=== PATIENT | male | born 1980 | race Caucasian/White ===

== ENCOUNTER 2020-08-21 09:55 | Outpatient (CLI) | payer OTHER, SELFPAY ==
--- NOTE | ~2020-08-21 | XR_ITS ---
EXAMINATION: UGI AIR CONTRAST W/ ESOPHAGRAM DATE: 10/29/07 09:43:00 INDICATION: Abdominal distention TECHNIQUE: Thin barium contrast with and without gas effervescent crystals were administered orally. Fluoroscopic images of the esophagus, stomach, and proximal duodenum were obtained in various projec tions. The hypopharynx was also imaged. Thereafter, overhead images of the thoracic esophagus and abd omen were performed. Fluoroscopy time 0.9 minutes. DAP is 5.2. 64 images. FINDINGS: No prior studies for comparison. The esophagus is normal in caliber, without mucosal lesions or strictures. There is normal esophagea l peristalsis. There is no hiatal hernia. The hypopharynx is normal. The gastric folds are normal. The proximal duodenum is also normal in appearance. IMPRESSION: 1. Normal esophagram and upper GI study. Reviewed, dictated and finalized at location A. ICE MAKER
== END 2020-08-21 09:56 | disposition home or self-care (01) ==
PROVIDERS: PCP Family Medicine; Visit Provider Internal Medicine
DX: R14.0 Abdominal distension (gaseous) (principal)
CPT/HCPCS: 74240

== ENCOUNTER 2020-08-24 06:54 | Outpatient (NON) | payer OTHER, SELFPAY ==
[2020-08-24 23:29] LABS: SARS-CoV-2 RNA PCR Negative
== END 2020-08-24 06:55 ==
LOC: ANHCOVIDDT 07:10
PROVIDERS: PCP Internal Medicine; Visit Provider Internal Medicine
DX: R05 Cough (principal); Z20.822 Contact with and (suspected) exposure to COVID-19
CPT/HCPCS: C9803; U0003

== ENCOUNTER 2020-09-11 01:32 | Outpatient (CLI) | payer OTHER, SELFPAY ==
[2020-09-11 18:12] LABS: SARS-CoV-2 RNA PCR Negative
== END 2020-09-11 01:33 | disposition home or self-care (01) ==
LOC: ANHCOVIDDT 01:32
PROVIDERS: Family Provider Family Medicine; PCP Internal Medicine; Visit Provider Internal Medicine Gastroenterology
DX: Z01.812 Encounter for preprocedural laboratory examination (principal); Z20.822 Contact with and (suspected) exposure to COVID-19
CPT/HCPCS: C9803; U0003; U0005

== ENCOUNTER 2020-09-14 01:40 | Day surgery (SDC) | payer OTHER, SELFPAY ==
[2020-09-05 14:43] VITALS: BMI 19.9
--- NOTE | 2020-09-12 15:44 | P.PNAN_ITS ---
Anes - Initial Pre Proc Eval Procedure: Operation Date: 09/14/20 12:15 Proposed Procedures p Esophagogastroduodenoscopy - Balta Hadley MD Date/Time: 09/12/20 15:44 Surgeon: Balta Hadley MD Pre Op Diagnosis: Gerd, Abdominal Distention Patient Data Age: 40 Gender: M Height: 1.68 m Weight: 56 kg Allergies Allergy/AdvReac Type Severity Reaction Status Date / Time amoxicillin Allergy Intermediate Hives Verified 09/14/20 11:07 Home Medications Medication Instructions Recorded Confirmed Type famotidine 20 mg tablet 20 mg PO BID 08/14/20 09/14/20 History sucralfate 1 gram tablet 2 g PO BID #120 tablet 08/23/20 09/14/20 Rx cholecalciferol (vitamin D3) 50 mcg PO DAILY 09/05/20 09/14/20 History [Vitamin D3] brvqpvgtywcz-zmm-qhbi-FA-vit K 1 tablet PO DAILY 09/05/20 09/14/20 History [Adults Multivitamin] tadalafil 5 mg PO PRN PRN 09/05/20 09/14/20 History vitamin B complex [B 1 tablet PO DAILY 09/05/20 09/14/20 History Complex-Vitamin B12] Patient hx anesthesia problems: none Family hx anesthesia problems: none PMFSH Past Medical History Medical History (Updated 08/21/20 @ 16:33 by Peri Mallory) Cough Dysplastic nevi cytologic atypia GERD (gastroesophageal reflux disease) Family History Family History Mother Family history of mental disorder Depression Family history of alcoholism Other No family history of cardiovascular disease Social History Social History Smoking status: Former smoker Tobacco type: cigarettes Alcohol intake: current Drinks per week: 6 Alcohol use details: PAST MONTH CUT TO ONLY A FEW DUE TO STOMACH ISSUES Substance use: current Substance use type: marijuana Last use: 08/24/20 Spiritual care concerns: No Anes - Eval Final PreProcedure Day of Procedure 09/12/20 15:44 Patient weight: thin Heart: regular rate and rhythm Lungs: clear to auscultation and normal air movement Airway: Mallampati scale class II Neurological: alert and oriented Last oral intake: >/= 8 hours ASA classification: II Emergent: no Anesthetic plan: proceed Anesthesia type and monitoring: general GIVS and standard monitoring Informed Consent: The patient's anesthetic plan and its attendant risks and benefits were discussed with the patient/family/POA. Questions were solicited and answers provided to the satisfaction of the patient/family/POA.
[2020-09-14 11:08] VITALS: BP 111/76; PULSE 53; RESP 15; TEMP 36.3; O2SAT 99
[2020-09-14] MEDS: LACTATED RINGERS 1,000 ML 150 ML IV CONT (11:34)
--- NOTE | 2020-09-14 11:43 | PM.HPGS ---
History of Present Illness History of Present Illness Consent: Risks, benefits, and alternatives have been discussed and questions answered. Patient agrees to proceed with procedure. Chief complaint: Gerd, Abdominal Distention Narrative: Sandro Longoria is a 40 year old male with bloating and dyspepsia for weeks despite using pepcid, carafate and low fat diet. Had a normal esophagram and upper GI study. Never had egd. Review of Systems Constitutional: Constitutional: Denies headache(s) and Denies weakness Eyes: Eyes: Denies blurry vision ENT: Reports Normal hearing present, Denies headache(s) and Denies neck pain Cardiovascular: Cardiovascular: Denies chest pain and Denies dyspnea Respiratory: Respiratory: Denies dyspnea Gastrointestinal: Gastrointestinal: Reports no additional gastrointestinal complaints Genitourinary: Genitourinary: Denies dysuria Musculoskeletal: Musculoskeletal: Denies neck pain Integumentary/Breasts: Skin/Breast: Denies dry skin Neurologic: Reports Normal hearing present, Denies headache(s) and Denies weakness Psychiatric: Psychiatric: Denies anxiety Endocrine: Endocrine: Denies change in body appearance Hematologic/Lymphatic: Hematologic/Lymphatic: Denies easy bleeding Allergic/Immunologic: Allergic/Immunologic: Denies urticaria PMFSH Past Medical History Medical History (Updated 09/14/20 @ 11:44 by Balta Hadley MD) Cough Dyspepsia Dysplastic nevi cytologic atypia GERD (gastroesophageal reflux disease) Family History Family History Mother Family history of mental disorder Depression Family history of alcoholism Other No family history of cardiovascular disease Social History Social History Smoking status: Former smoker Tobacco type: cigarettes Alcohol intake: current Drinks per week: 6 Alcohol use details: PAST MONTH CUT TO ONLY A FEW DUE TO STOMACH ISSUES Substance use: current Substance use type: marijuana Last use: 08/24/20 Spiritual care concerns: No Meds Home Medications and Allergies Home Medications Medication Instructions Recorded Confirmed Type famotidine 20 mg tablet 20 mg PO BID 08/14/20 09/14/20 History sucralfate 1 gram tablet 2 g PO BID #120 tablet 08/23/20 09/14/20 Rx cholecalciferol (vitamin D3) 50 mcg PO DAILY 09/05/20 09/14/20 History [Vitamin D3] zjeowxwsdnni-fao-agtt-FA-vit K 1 tablet PO DAILY 09/05/20 09/14/20 History [Adults Multivitamin] tadalafil 5 mg PO PRN PRN 09/05/20 09/14/20 History vitamin B complex [B 1 tablet PO DAILY 09/05/20 09/14/20 History Complex-Vitamin B12] Allergies Allergy/AdvReac Type Severity Reaction Status Date / Time amoxicillin Allergy Intermediate Hives Verified 09/14/20 11:07 Vital Signs Vital Signs - 24 hr 09/14/20 11:08 Temperature 97.4 F L Pulse Rate 53 L Respiratory Rate 15 Blood Pressure 111/76 Pulse Oximetry 99 Exam Const: General: comfortable and no acute distress HENMT: General nose exam: Normal nares present Eyes: General: appearance normal, both eyes and all related structures Neck: Neck: no JVD Resp: Auscultation: clear to auscultation bilaterally Cardio: Rate: regular rate Rhythm: regular rhythm GI: Inspection: non-distended GI Palp: Yes Soft to palpation Skin: General skin exam: normal color Neuro: General: gait normal Speech: normal speech Extrem: General: normal to inspection Psych: Mental Status: mental status grossly normal Assessment and Plan Assessment and plan (1) Bloating: Code(s): R14.0 - Abdominal distension (gaseous) Status: Acute Assessment and Plan: egd with bx (2) Dyspepsia: Code(s): R10.13 - Epigastric pain Status: Acute
[2020-09-14] MEDS: BENZOCAINE (*SP) 60 ML SPRAY CAN (HURRICAINE) 1 SPRAY MUCOUS MEM (11:47)
[2020-09-14 11:59] VITALS: BP 98/64; PULSE 50; RESP 18; O2SAT 97
[2020-09-14 12:09] VITALS: BP 103/67; PULSE 66; RESP 16; O2SAT 98
[2020-09-14 12:19] VITALS: BP 107/74; PULSE 44; RESP 13; O2SAT 100
== END 2020-09-14 12:37 | disposition home or self-care (01) ==
PROVIDERS: Family Provider Family Medicine; PCP Internal Medicine; Visit Provider Internal Medicine Gastroenterology
PROC: 0DJ08ZZ Inspection of Upper Intestinal Tract, Via Natural or Artificial Opening Endoscopic (ICD-10-PCS; CPT 43235; principal; 2020-09-14 12:15)
DX: K21.9 Gastro-esophageal reflux disease without esophagitis (principal); K30 Functional dyspepsia; R14.0 Abdominal distension (gaseous); Z87.891 Personal history of nicotine dependence
CPT/HCPCS: 43239; 88305; C9803; J2001; J2704; J7120; U0003; U0005

== ENCOUNTER 2020-09-20 06:52 | Outpatient (NON) | payer OTHER, SELFPAY ==
[2020-09-20 17:37] LABS: SARS-CoV-2 RNA PCR Negative
== END 2020-09-20 06:53 ==
LOC: ANHCOVIDDT 06:52
PROVIDERS: PCP Internal Medicine; Visit Provider Internal Medicine
DX: R68.89 Other general symptoms and signs (principal); Z20.822 Contact with and (suspected) exposure to COVID-19
CPT/HCPCS: C9803; U0003; U0005

== ENCOUNTER → 2020-09-21 07:54 | Outpatient (CLI) | payer OTHER, SELFPAY ==
--- NOTE | ~2020-09-21 | US_ITS ---
US abdomen complete DATE: 09/21/2020 08:13 INDICATION: Left upper quadrant abdominal pain. Gas, bloating, heartburn, indigestion. TECHNIQUE: Real-time imaging and Doppler analysis of the abdomen COMPARISON: None FINDINGS: No hepatic or pancreatic space-occupying mass lesion is evident. Normal hepatopedal portal venous flow direction. Small gallbladder polyps. No gallstones or significant gallbladder wall thickening. Negative sonograp hic Ortez's sign. Right kidney measures 10.7 cm length, left kidney 11.1 cm length. No renal mass lesion or hydronephro sis. Normal splenic size. Normal caliber of the abdominal aorta. The inferior vena cava is unremarkable. IMPRESSION: Small gallbladder polyps; otherwise unremarkable examination Reviewed, dictated and finalized at Location A. Reviewed, dictated and finalized at location A. ICE TEAM LEADER
== END ==
PROVIDERS: PCP Internal Medicine; Visit Provider Internal Medicine
DX: R10.12 Left upper quadrant pain (principal); K82.4 Cholesterolosis of gallbladder
CPT/HCPCS: 76700

== ENCOUNTER 2020-09-27 07:50 | Outpatient (CLI) | payer OTHER, SELFPAY ==
--- NOTE | ~2020-09-27 | NM_ITS ---
EXAMINATION: NM hepatobiliary w pharm DATE: 09/27/2020 09:53 INDICATION: Abdominal distention. COMPARISON: Ultrasound 09/21/2020 TECHNIQUE: 4.8 mCi Tc-99m mebrofenin (Choletec) was administered intravenously. Scintigraphic images of the abdomen were obtained for one hour. Then, 1.1 mcg sincalide (Kinevac) IV was administered, an d imaging was continued for 30 minutes. FINDINGS: There is normal clearance of radiotracer from the blood pool. There is homogeneous tracer u ptake by the liver. Activity progresses to the bowel and gallbladder. Gallbladder ejection fraction (GBEF) was 81%. Note that most patients with gallbladder dysfunction have GBEF < 35%, which overlaps with the broad normal range of 10-90%. IMPRESSION: 1. Normal hepatobiliary scintigraphy. Reviewed, dictated and finalized at location A. CIATE WEB DEVELOPER
== END 2020-09-27 07:51 | disposition home or self-care (01) ==
PROVIDERS: PCP Internal Medicine; Visit Provider Internal Medicine
DX: R14.0 Abdominal distension (gaseous) (principal); R10.13 Epigastric pain; K82.4 Cholesterolosis of gallbladder
CPT/HCPCS: 78227; A9537; J2805

== ENCOUNTER → 2020-10-05 14:57 | Outpatient (CLI) | payer OTHER, SELFPAY ==
--- NOTE | ~2020-10-05 | CT_ITS ---
EXAMINATION: CT abdomen pelvis w con DATE: 10/05/2020 15:23 INDICATION: Lower abdominal pain, gas, bloating. Blood in stool. Low white blood cell and platelet co unts. TECHNIQUE: Computed tomography (CT) of the abdomen and pelvis was performed with 100 cc Omnipaque 350 intravenous contrast. Automated exposure control and iterative reconstruction technique were employe d. Exam dose: 251.64 mGy-cm total exam DLP. COMPARISON: September 21, 2020 complete abdominal ultrasound examination FINDINGS: The lung bases are clear of infiltrate or consolidation or mass density. Normal heart size. No pericardial or pleural effusion. The liver, gallbladder, bile ducts, spleen, pancreas and pancreatic duct are unremarkable. No adrenal mass lesion. No renal mass lesion or urinary tract calculus or hydroureteronephrosis is evident. Normal caliber of the abdominal aorta. No intraperitoneal or retroperitoneal or pelvic mass lesion or adenopathy or ascites is detected. No bowel obstruction, bowel wall thickening, pneumatosis or intraperitoneal free air is evident. Ther e are some fluid containing small bowel segments with scattered small bowel air-fluid levels, without apparent bowel obstruction. Moderate degenerative disc disease and minimal retrolisthesis at L5-S1. No suspicious osteolytic or o steoblastic lesions are noted. IMPRESSION: Moderate degenerative disc disease and minimal retrolisthesis at L5-S1 Scattered nonspecific fluid containing nondilated small bowel segments with air-fluid levels; otherwi se no significant abnormality of the abdomen or pelvis Reviewed, dictated and finalized at Location A. Reviewed, dictated and finalized at location B. ERY SEAMSTRESS IMPRESSION: Moderate degenerative disc disease and minimal retrolisthesis at L 5-S1 Scattered nonspecific fluid containing nondilated small bowel segments with air -fluid levels; otherwise no significant abnormality of the abdomen or pelvis
== END ==
PROVIDERS: PCP Internal Medicine; Visit Provider Internal Medicine Hematology & Oncology
DX: R10.30 Lower abdominal pain, unspecified (principal); M51.37 Other intervertebral disc degeneration, lumbosacral region
CPT/HCPCS: 74177; Q9967

== ENCOUNTER → 2020-10-20 00:43 | Outpatient (CLI) | payer OTHER, SELFPAY ==
[2020-10-20 19:48] LABS: SARS-CoV-2 RNA PCR Negative
== END ==
PROVIDERS: PCP Internal Medicine; Visit Provider Internal Medicine Gastroenterology
DX: Z01.812 Encounter for preprocedural laboratory examination (principal); Z20.822 Contact with and (suspected) exposure to COVID-19
CPT/HCPCS: C9803; U0003; U0005

== ENCOUNTER 2020-10-23 00:36 | Day surgery (SDC) | payer OTHER, SELFPAY ==
[2020-10-10 11:03] VITALS: BMI 19.8
[2020-10-23 08:45] VITALS: BP 118/78; PULSE 58; RESP 16; TEMP 36.2; O2SAT 100
[2020-10-23] MEDS: LACTATED RINGERS 1,000 ML 150 ML IV CONT (08:54)
--- NOTE | 2020-10-23 09:26 | WPDANESEPPF ---
Anes - Initial Pre Proc Eval Procedure: Operation Date: 10/23/20 10:00 Proposed Procedures p Colonoscopy - Balta Hadley MD Date/Time: 10/23/20 09:26 Surgeon: Balta Hadley MD Pre Op Diagnosis: Rectal Bleed, Abnormal Weight Loss Patient Data Age: 40 Gender: M Height: 5 ft 6 in Weight: 55.3 kg Last Vital Signs Temp 36.2 C L 10/23/20 08:45 Pulse 58 L 10/23/20 08:45 Resp 16 10/23/20 08:45 BP 118/78 10/23/20 08:45 Pulse Ox 100 10/23/20 08:45 Allergies Allergy/AdvReac Type Severity Reaction Status Date / Time amoxicillin Allergy Intermediate Hives Verified 10/23/20 08:43 Home Medications Medication Instructions Recorded Confirmed Type famotidine 20 mg tablet 20 mg PO BID 08/14/20 09/17/20 History cholecalciferol (vitamin D3) 50 mcg PO DAILY 09/05/20 10/23/20 History [Vitamin D3] yfqtnwusndjl-jfi-rapw-FA-vit K 1 tablet PO DAILY 09/05/20 09/17/20 History [Adults Multivitamin] vitamin B complex [B 1 tablet PO DAILY 09/05/20 09/17/20 History Complex-Vitamin B12] lactobacillus combination no.8 3 3,000 mmu cells PO DAILY 09/17/20 09/17/20 History billion cell capsule tadalafil 5 mg tablet 5 mg PO DAILY PRN #30 tablet 09/27/20 Rx Patient hx anesthesia problems: none Family hx anesthesia problems: none PMFSH Past Medical History Medical History Abdominal pain BMI 20.0-20.9, adult BRBPR (bright red blood per rectum) Cough Dyspepsia Dysplastic nevi cytologic atypia Encounter for screening for COVID-19 Gallbladder polyp GERD (gastroesophageal reflux disease) Thrombocytopenia Weight loss Family History Family History Mother Family history of mental disorder Depression Family history of alcoholism Other No family history of cardiovascular disease Social History Social History Smoking status: Former smoker Tobacco type: cigarettes Alcohol intake: current Drinks per week: 6 Substance use: current Substance use type: marijuana Last use: 08/24/20 Living arrangements: with family Gender identity (if verbalized by the patient): Male Spiritual care concerns: No Anes - Eval Final PreProcedure Day of Procedure 10/23/20 09:26 Patient weight: normal Heart: regular rate and rhythm Lungs: clear to auscultation Airway: Mallampati scale class 1 Neurological: alert and oriented Last oral intake: >/= 8 hours ASA classification: II Emergent: no Anesthetic plan: proceed Anesthesia type and monitoring: general GIVS and standard monitoring Informed Consent: The patient's anesthetic plan and its attendant risks and benefits were discussed with the patient/family/POA. Questions were solicited and answers provided to the satisfaction of the patient/family/POA.
--- NOTE | 2020-10-23 10:17 | PM.HPGS ---
History of Present Illness History of Present Illness Consent: Risks, benefits, and alternatives have been discussed and questions answered. Patient agrees to proceed with procedure. Chief complaint: Rectal Bleed, Abnormal Weight Loss Narrative: Sandro Longoria is a 40 year old male with intermittent rectal bleed, bloating and weight loss, egd and CT scan unremarkable. Review of Systems Constitutional: Constitutional: Denies headache(s) and Denies weakness Eyes: Eyes: Denies blurry vision ENT: Reports Normal hearing present, Denies headache(s) and Denies neck pain Cardiovascular: Cardiovascular: Denies chest pain and Denies dyspnea Respiratory: Respiratory: Denies dyspnea Gastrointestinal: Gastrointestinal: Reports no additional gastrointestinal complaints Genitourinary: Genitourinary: Denies dysuria Musculoskeletal: Musculoskeletal: Denies neck pain Integumentary/Breasts: Skin/Breast: Denies dry skin Neurologic: Reports Normal hearing present, Denies headache(s) and Denies weakness Psychiatric: Psychiatric: Denies anxiety Endocrine: Endocrine: Denies change in body appearance Hematologic/Lymphatic: Hematologic/Lymphatic: Denies easy bleeding Allergic/Immunologic: Allergic/Immunologic: Denies urticaria PMFSH Past Medical History Medical History Abdominal pain BMI 20.0-20.9, adult BRBPR (bright red blood per rectum) Cough Dyspepsia Dysplastic nevi cytologic atypia Encounter for screening for COVID-19 Gallbladder polyp GERD (gastroesophageal reflux disease) Thrombocytopenia Weight loss Family History Family History Mother Family history of mental disorder Depression Family history of alcoholism Other No family history of cardiovascular disease Social History Social History Smoking status: Former smoker Tobacco type: cigarettes Alcohol intake: current Drinks per week: 6 Substance use: current Substance use type: marijuana Last use: 08/24/20 Living arrangements: with family Gender identity (if verbalized by the patient): Male Spiritual care concerns: No Meds Home Medications and Allergies Home Medications Medication Instructions Recorded Confirmed Type famotidine 20 mg tablet 20 mg PO BID 08/14/20 09/17/20 History cholecalciferol (vitamin D3) 50 mcg PO DAILY 09/05/20 10/23/20 History [Vitamin D3] gobyeibxzbsw-scy-ibdq-FA-vit K 1 tablet PO DAILY 09/05/20 09/17/20 History [Adults Multivitamin] vitamin B complex [B 1 tablet PO DAILY 09/05/20 09/17/20 History Complex-Vitamin B12] lactobacillus combination no.8 3 3,000 mmu cells PO DAILY 09/17/20 09/17/20 History billion cell capsule tadalafil 5 mg tablet 5 mg PO DAILY PRN #30 tablet 09/27/20 Rx Allergies Allergy/AdvReac Type Severity Reaction Status Date / Time amoxicillin Allergy Intermediate Hives Verified 10/23/20 08:43 Vital Signs Vital Signs - 24 hr 10/23/20 08:45 Temperature 97.2 F L Pulse Rate 58 L Respiratory Rate 16 Blood Pressure 118/78 Pulse Oximetry 100 Exam Const: General: comfortable and no acute distress HENMT: General nose exam: Normal nares present Eyes: General: appearance normal, both eyes and all related structures Neck: Neck: no JVD Resp: Auscultation: clear to auscultation bilaterally Cardio: Rate: regular rate Rhythm: regular rhythm GI: Inspection: non-distended GI Palp: Yes Soft to palpation Skin: General skin exam: normal color Neuro: General: gait normal Speech: normal speech Extrem: General: normal to inspection Psych: Mental Status: mental status grossly normal Assessment and Plan Assessment and plan (1) Weight loss: Code(s): R63.4 - Abnormal weight loss Status: Acute (2) BRBPR (bright red blood per rectum): Code(s): K62.5 - He
[2020-10-23 10:45] VITALS: BP 107/70; PULSE 47; RESP 23; O2SAT 100
[2020-10-23 10:55] VITALS: BP 127/84; PULSE 50; RESP 14; O2SAT 94
[2020-10-23 11:05] VITALS: BP 127/84; PULSE 50; RESP 14; O2SAT 94
== END 2020-10-23 11:09 | disposition home or self-care (01) ==
PROVIDERS: PCP Internal Medicine; Visit Provider Internal Medicine Gastroenterology
PROC: 0DJD8ZZ Inspection of Lower Intestinal Tract, Via Natural or Artificial Opening Endoscopic (ICD-10-PCS; CPT 45378; principal; 2020-10-23 10:00)
DX: K92.1 Melena (principal); K64.8 Other hemorrhoids; R10.13 Epigastric pain; K21.9 Gastro-esophageal reflux disease without esophagitis; D69.6 Thrombocytopenia, unspecified; R63.4 Abnormal weight loss; Z68.1 Body mass index [BMI] 19.9 or less, adult; Z87.891 Personal history of nicotine dependence; F12.90 Cannabis use, unspecified, uncomplicated
CPT/HCPCS: 45378; C9803; J2704; J7120; U0003; U0005

== ENCOUNTER → 2020-11-05 09:32 | Outpatient (CLI) | payer OTHER, SELFPAY ==
[2020-11-05 20:23] LABS: SARS-CoV-2 RNA PCR Negative
== END ==
PROVIDERS: PCP Internal Medicine; Visit Provider Internal Medicine
DX: R05 Cough (principal); Z20.822 Contact with and (suspected) exposure to COVID-19
CPT/HCPCS: C9803; U0003; U0005

== ENCOUNTER 2020-11-12 16:08 | Outpatient (CLI) | payer OTHER, SELFPAY ==
--- NOTE | ~2020-11-12 | XR_ITS ---
EXAMINATION: XR scanogram DATE: 11/12/2020 16:37 INDICATION: Limb length discrepancy. TECHNIQUE: An anteroposterior view of the pelvis and lower limbs standing was obtained. COMPARISON: None. FINDINGS: Left femoral head stands 15 mm higher than the right. Left tibial plateau stands 5 mm highe r than the right. Right talus stands 4 mm higher than the left. 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 IMPRESSION: 1. Limb length discrepancy. Reviewed, dictated and finalized at location A. IMPRESSION: 1. Limb length discrepancy.
== END 2020-11-12 16:09 | disposition home or self-care (01) ==
PROVIDERS: PCP Internal Medicine; Visit Provider Podiatrist Foot & Ankle Surgery
DX: M21.70 Unequal limb length (acquired), unspecified site (principal)
CPT/HCPCS: 77073

== ENCOUNTER 2021-09-22 14:20 | Emergency (ER) | payer OTHER, SELFPAY ==
--- NOTE | ~2021-09-22 | XR_ITS ---
EXAMINATION: XR foot RT min 3V EXAM DATE: 09/22/2021 14:37 INDICATION: rolled right foot playing basketball today . TECHNIQUE: Right foot dorsoplantar, lateral and oblique projections obtained and reviewed. There is no prior study for comparison. FINDINGS: There is acute closed posttraumatic oblique fracture through the right 5th metatarsal neck, minimal angulation. There is overlying soft tissue swelling. IMPRESSION: Right 5th metatarsal neck fracture. Reviewed, dictated and finalized at location G. NURSE
--- NOTE | 2021-09-22 14:25 | ED.LOWEXIN ---
HPI - Extremity Injury (Lower) General Chief Complaint: Extremity Injury, Lower Stated Complaint: R foot pain Source: patient Mode of arrival: ambulatory Limitations: no limitations History of Present Illness HPI Narrative: 41 y/o male presented for c/o right foot/ankle pain after injury today while playing basketball. States he jumped for a ball and inverted the foot when he landed, heard a 'pop' at the time. Pain 6/10 when walking, relief when at rest. Has taken ibuprofen for pain. Denies numbness, tingling, or weakness to the foot Related Data Home Medications Medication Instructions Recorded Confirmed famotidine 20 mg tablet 20 mg PO BID 08/14/20 09/17/20 cholecalciferol (vitamin D3) 50 mcg PO DAILY 09/05/20 10/23/20 [Vitamin D3] dcubyvwmsqcv-irc-bxco-FA-vit K 1 tablet PO DAILY 09/05/20 09/17/20 [Adults Multivitamin] vitamin B complex [B 1 tablet PO DAILY 09/05/20 09/17/20 Complex-Vitamin B12] lactobacillus combination no.8 3 3,000 mmu cells PO DAILY 09/17/20 09/17/20 billion cell capsule Allergies Allergy/AdvReac Type Severity Reaction Status Date / Time amoxicillin Allergy Intermediate Hives Verified 11/01/20 08:43 Review of Systems Review of Systems: CONSTITUTIONAL: Denies body aches, fever, chills EYES: Denies visual changes ENT: Denies rhinorrhea, congestion CARDIOVASCULAR: Denies chest pain, palpitations, or edema. RESPIRATORY: Denies cough or dyspnea. GASTROINTESTINAL: Denies abdominal pain, nausea, vomiting, or diarrhea. SKIN: Denies rash, itching, or wounds. MUSCULOSKELETAL: Endorses right ankle pain NEUROLOGIC: Denies headache, numbness, tingling, or weakness. PSYCH: Denies depression or anxiety. All systems reviewed & are unremarkable except as noted in HPI and below PMFSH Past Medical History Medical History Abdominal pain BMI 20.0-20.9, adult BRBPR (bright red blood per rectum) Cough Dyspepsia Dysplastic nevi cytologic atypia Encounter for screening for COVID-19 Gallbladder polyp GERD (gastroesophageal reflux disease) Skin cancer screening Thrombocytopenia Weight loss Family History Family History Mother Family history of mental disorder Depression Family history of alcoholism Other No family history of cardiovascular disease Social History Social History Smoking status: Former smoker Tobacco type: cigarettes Alcohol intake: current Drinks per week: 6 Alcohol use details: PAST MONTH CUT TO ONLY A FEW DUE TO STOMACH ISSUES Substance use: current Substance use type: marijuana Last use: 08/24/20 Gender identity (if verbalized by the patient): Male Spiritual care concerns: No Comments At time of signature, I have reviewed and agree with nursing past medical, surgical, social and family history unless otherwise noted. Please see nursing chart for further information. There is no relevant family history pertinent to the presenting complaint Exam Narrative: GENERAL: Well-appearing, well-nourished, and in no acute distress. HEAD: Normocephalic, atraumatic. EYES: PERRLA, conjunctivae clear NECK: Supple. CHEST: Speaks in full sentences. No respiratory distress. HEART: Regular rate and rhythm. Normal and equal peripheral pulses. EXTREMITIES: Right dorsal foot mild swelling mild bruising over distal 5th metatarsal, tender to palpation; sensation ROM, and circulation intact, cap refill <3seconds. SKIN: Warm, dry, no rash. NEURO: Alert and oriented x3. PSYCH: Normal mood and affect Course Course Emergency Course: Xray reviewed with pt. Posterior ankle splint applied per RN. Patient is aware of diagnosis, understands and agrees to treatment plan. Anticipatory guidance given. Patient agrees to follow-up as directed and is aware of reasons to seek care at the emergency d
[2021-09-22 14:38] VITALS: BP 122/68; PULSE 62; RESP 16; TEMP 36.8; O2SAT 100
== END 2021-09-22 15:28 | disposition home or self-care (01) ==
PROVIDERS: Emergency Provider Nurse Practitioner Family; PCP Internal Medicine
DX: S92.351A Displaced fracture of fifth metatarsal bone, right foot, initial encounter for closed fracture (principal); X50.9XXA Other and unspecified overexertion or strenuous movements or postures, initial encounter; Y93.67 Activity, basketball; K21.9 Gastro-esophageal reflux disease without esophagitis; Z87.891 Personal history of nicotine dependence
CPT/HCPCS: 29515; 73630; 99214; G0463

== ENCOUNTER 2025-05-08 08:55 | Outpatient (CLI) | payer OTHER, SELFPAY ==
--- NOTE | ~2025-05-08 | DEXA_ITS ---
Bone Density Report Name: LORETTA NOWAK Age: 44 Sex: Male Ethnicity: White Date of : 1980 Indication: Referring Provider: [id number] Study: Bone densitometry was performed. Exam Date: May 08, 2025 Accession number: [id number] Bone Density: Region BMD T-score Z-score Classification AP Spine(L1-L4) 0.816 -2.5 -2.2 Osteoporosis Femoral Neck (Left) 0.640 -2.1 -1.5 Osteopenia Total Hip (Left) 0.726 -2.0 -1.8 Osteopenia Femoral Neck (Right) 0.619 -2.3 -1.6 Osteopenia Total Hip (Right) 0.713 -2.1 -1.8 Osteopenia Total Hip Mean 0.720 -2.1 -1.8 Osteopenia World Health Organization criteria for BMD impression classify patients as: Normal (T-score at or above -1.0), Osteopenia (T-score between -1.0 and -2.5), or Osteoporosis (T-score at or below -2.5). 10-year Fracture Risk: FRAX not reported because: Man under age 50 Some T-score for Spine Total or Hip Total or Femoral Neck at or below -2.5 Clinical Information Provided by Patient: Has used the following medications: Vitamin D, Calcium Patient maximum height was 66 Drinks caffeinated beverages Impression: The patient's bone mass is below expected range for age, gender and ethnicity based on the Total Spine Z-score. Discussion: BONE DENSITY IS ABNORMALLY LOW FOR AGE, SEX, AND RACE. This patient's lowest Z-score is -2.0 or more below average for age, sex, and race at one or more sites. This may be due to low peak bone mass or to excessive bone loss. There may be some underlying disease or condition contributing to reduced bone mass. Further evaluation should be considered. There are no data relating bone density and fracture risk in younger men. The ISCD position is that the diagnosis of ?low bone mass? or ?osteoporosis? should not be made on densitometric criteria alone. WHO criteria only apply to men age > 50. The 10-year fracture risk calculated by FRAX is less than the threshold recommended by the National Osteoporosis Foundation (NOF) for treatment for men age > 50, and no threshold has been established for younger men. All treatment decisions require clinical judgment and consideration of individual patient factors, including patient preferences, comorbidities, previous drug use, risk factors not captured in the FRAX model (e.g., frailty, falls, vitamin D deficiency, increased bone turnover, interval significant decline in bone density) and possible under or overestimation of fracture risk by FRAX. Although pharmacologic therapy is sometimes indicated for patients with Z-scores in this range, there is little information available. A decision to treat should be based on a thorough consideration of benefits and risks. The patient should follow a healthful lifestyle (good nutrition with adequate calcium and vitamin D, and appropriate weight-bearing exercise). Follow-Up: Consider repeating this study in 2 years to reassess this patient's status, or sooner if there is some new clinical indication. Reported by: LOUISE on 05/08/2025 9:20:00 AM. Reviewed, dictated and finalized at location A.
== END 2025-05-08 08:56 | disposition home or self-care (01) ==
LOC: MICIMG 08:56
DX: Z13.820 Encounter for screening for osteoporosis (principal); M81.0 Age-related osteoporosis without current pathological fracture; M85.852 Other specified disorders of bone density and structure, left thigh; M85.851 Other specified disorders of bone density and structure, right thigh
CPT/HCPCS: 77080